=== PATIENT | male | born 1940 ===

== ENCOUNTER 2017-09-05 10:38 | Emergency (ER) | payer MEDICARE ==
[2017-09-05 11:42] LABS: BASO % 0.8 % (0.0-2.0); EOS # 0.1 K/uL (0.0-0.7); EOS % 1.6 % (0.0-4.0); HEMOGLOBIN 14.9 g/dL (12.0-18.0); LYMPH # 1.3 K/uL (1.0-4.3); MEAN CELL VOLUME 85.9 fL (80.0-94.0); MEAN CORPUSCULAR HGB CONC 34.9 g/dL (33.0-37.0); MEAN PLATELET VOLUME 8.2 fL (7.2-11.7); MONO # 0.5 K/uL (0.0-0.8); MONO % 8.2 % (0.0-10.0); NEUT # 4.3 K/uL (1.8-7.0); NEUT % 68.4 % (50.0-75.0); RBC 4.98 Mil/uL (4.40-5.90); RED CELL DISTRIBUTION WIDTH 14.3 % (11.5-14.5); WHITE BLOOD COUNT 6.4 K/uL (4.8-10.8)
--- NOTE | 2017-09-05 11:42 | C.PDOC ---
History Of Present Illness 77yo male, with history of diabetes, comes to ER for evaluation of right toe pain, redness and swelling x 5 days. Patient states his symptoms started after he cut his toenails and cut into his skin as well. Otherwise, denies any fever, chills, weakness, numbness or tingling to his foot. Patient offers no additional medical complaints. Time Seen by Provider: 09/05/17 11:08 Chief Complaint (Nursing): Lower Extremity Problem/Injury History Per: Patient History/Exam Limitations: no limitations Onset/Duration Of Symptoms: Days Current Symptoms Are (Timing): Still Present Additional History Per: Patient Past Medical History Reviewed: Historical Data, Nursing Documentation, Vital Signs Vital Signs: Last Vital Signs Temp 97.5 F L 09/05/17 10:42 Pulse 75 09/05/17 10:42 Resp 16 09/05/17 10:42 BP 133/72 09/05/17 10:42 Pulse Ox 98 09/05/17 12:51 - Medical History PMH: Diabetes Surgical History: No Surg Hx Family History: States: No Known Family Hx - Social History Hx Alcohol Use: No Hx Substance Use: No - Immunization History Hx Tetanus Toxoid Vaccination: No Hx Influenza Vaccination: No Review Of Systems Except As Marked, All Systems Reviewed And Found Negative. Constitutional: Negative for: Fever, Chills Musculoskeletal: Positive for: Foot Pain (right foot pain) Neurological: Negative for: Weakness, Numbness Physical Exam - Physical Exam Appears: Non-toxic, No Acute Distress Skin: Warm, Dry Head: Atraumatic, Normacephalic Eye(s): bilateral: Normal Inspection Neck: Supple Chest: Symmetrical Cardiovascular: Rhythm Regular Respiratory: Normal Breath Sounds Gastrointestinal/Abdominal: Normal Exam, Soft, No Tenderness Back: Normal Inspection Extremity: Normal ROM, No Pedal Edema, No Calf Tenderness, Capillary Refill (< 2 seconds), No Deformity, Swelling (swelling and erythema to dorsal aspect of right forefoot. no drainage noted.) Pulses: Left Dorsalis Pedis: Normal (normal 2+ PT pulses bilaterally), Right Dorsalis Pedis: Normal Neurological/Psych: Oriented x3, Normal Speech, Normal Cognition, Normal Motor, Normal Sensation ED Course And Treatment - Laboratory Results Result Diagrams: 09/05/17 11:39 09/05/17 11:39 O2 Sat by Pulse Oximetry: 98 (RA) Pulse Ox Interpretation: Normal - Other Rad XR Foot X-Ray: Viewed By Me, Read By Radiologist Interpretation: FINDINGS: BONES: No fracture. Very small plantar calcaneal spur noted. No lytic or blastic osseous lesion. There is a small shallow erosion along the medial distal border of the 1st proximal phalanx with a sclerotic border indicating that this is likely a slow or remote process. There is no overlying soft tissue swelling to suggest tophus. Nevertheless, the possibility of gout should be considered. No other erosions are appreciated. JOINTS: Normal. SOFT TISSUES: Normal. OTHER FINDINGS: None. IMPRESSION: Small shallow erosion along the distal medial aspect 1st proximal phalanx. Possible gout. No evidence of osteomyelitis. Medical Decision Making Medical Decision Making: Assessment: Cellulitis Plan: -- XR right foot 1130 Podiatry resident aware, will evaluate patient at bedside -- Basic labs ordered 1224 Labs reviewed, no clinically significant abnormalities. XR foot reviewed, no acute findings. 1250 Patient seen and evaluated by podiatry resident, plan to discharge patient home with 7 day course of augmentin. Patient to follow up with Dr. Perez in his office. Disposition Discussed With .: Jaciel Perez Doctor Will See Patient In The: ED Counseled Patient/Family Regarding: Studies Performed, Diagnosis, Need For Followup, Rx Given - Disposition Referrals: Jaciel Perez DPM [Staff Provider] - Disposition: HOME/ ROUTINE Disposition Time: 12:52 Condition: STABLE Additional Instructions: follow up with Dr. Perez within 2 days call to make an appointment take medication as prescribed return to ER if symptoms worsens or progress Prescriptions: Amoxicillin/Clavulanate [Augmentin 875 MG-125 MG] 1 tab PO BID #20 tab Instructions: Cellulitis (Skin Infection), Adult (DC) Forms: Gen Discharge Inst Azerbaijani, Weblio (Azerbaijani) Print Language: UPPER SORBIAN - Clinical Impression Clinical Impression: Cellulitis - Isauraibe Statement The provider has reviewed the documentation as recorded by the Harper Davis Provider Attestation: All medical record entries made by the Harper were at my direction and personally dictated by me. I have reviewed the chart and agree that the record accurately reflects my personal performance of the history, physical exam, medical decision making, and the department course for this patient. I have also personally directed, reviewed, and agree with the discharge instructions and disposition.
[2017-09-05 11:55] LABS: ALB/GLOB RATIO 1.4 (1.0-2.1); ALBUMIN 4.2 g/dL (3.5-5.0); ALT/SGPT 35 U/L (21-72); AST/SGOT 18 U/L (17-59); BLOOD UREA NITROGEN 21 mg/dL (9-20); CALCIUM 9.3 mg/dl (8.6-10.4); GFR AFRICAN-AMERICAN > 60; GFR NON-AFRICAN AMERICAN > 60
--- NOTE | 2017-09-05 12:07 | RAD ---
Date of service: 09/05/2017 PROCEDURE: Right Foot Radiographs. HISTORY: toe swelling COMPARISON: None. FINDINGS: BONES: No fracture. Very small plantar calcaneal spur noted. No lytic or blastic osseous lesion. There is a small shallow erosion along the medial distal border of the 1st proximal phalanx with a sclerotic border indicating that this is likely a slow or remote process. There is no overlying soft tissue swelling to suggest tophus. Nevertheless, the possibility of gout should be considered. No other erosions are appreciated. JOINTS: Normal. SOFT TISSUES: Normal. OTHER FINDINGS: None. IMPRESSION: Small shallow erosion along the distal medial aspect 1st proximal phalanx. Possible gout. No evidence of osteomyelitis.
--- NOTE | 2017-09-05 12:39 | CP.PCM.CON ---
History of Present Illness - History of Present Illness History of Present Illness: Podiatry Consult Note - Dr. Perez 77 year old male PMHx DM seen and evaluated in ED regarding right great toe pain with associated redness and swelling x5 days. Patient states approximately 1 week ago he accidentally cut the skin around his great toe nail while he was trimming his nails - admits the redness and swelling started the next day. Patient reports 5/10 pain in his left great toe, worsened with ambulation and while wearing shoes. Patient admits to putting Vicks Vaporub as prior treatment , and Tylenol as needed for pain. Denies N/V/F/D/C/SOB. Offers no other complaints at this time. Review of Systems - Review of Systems All systems: reviewed and no additional remarkable complaints except (as per HPI ) Past Patient History - Infectious Disease Hx of Infectious Diseases: None - Past Social History Smoking Status: Never Smoked - ENDOCRINE/METABOLIC Hx Diabetes Mellitus Type 2: Yes - PSYCHIATRIC Hx Substance Use: No - ANESTHESIA Hx Anesthesia: No Meds Home Medications: Home Medication List Medication Instructions Recorded Confirmed Type Amoxicillin/Clavulanate [Augmentin 1 tab PO BID #20 tab 09/05/17 Rx 875 MG-125 MG] Allergies/Adverse Reactions: Allergies Allergy/AdvReac Type Severity Reaction Status Date / Time No Known Allergies Allergy Verified 09/05/17 10:44 Physical Exam - Constitutional Appears: Well, Non-toxic, No Acute Distress - Extremities Exam Additional comments: RLE focused physical exam VASC: DP and PT pulses palpable 2/4. CFT <3 seconds to all digits x5. Temperature gradient warm to warm, no significant increase in warmth to areas of erythema. Nonpitting edema noted to right hallux. NEURO: Gross sensation diminished. DERM: Linear superficial laceration noted to lateral hallucal nail fold with periwound maceration present; no drainage noted; no malodor; no purulence; no fluctuance. Erythema noted to hallux extending proximally to 1st metatarsal head. ORTHO: Mild tenderness to palpation laceration. - Neurological Exam Neurological exam: Alert, Oriented x3 - Psychiatric Exam Psychiatric exam: Normal Affect, Normal Mood Results - Vital Signs Recent Vital Signs: Last Vital Signs Temp 97.5 F L 09/05/17 10:42 Pulse 75 09/05/17 10:42 Resp 16 09/05/17 10:42 BP 133/72 09/05/17 10:42 Pulse Ox 98 09/05/17 12:24 - Labs Result Diagrams: 09/05/17 11:39 09/05/17 11:39 Labs: Laboratory Results - last 24 hr 09/05/17 09/05/17 11:39 11:39 WBC 6.4 RBC 4.98 Hgb 14.9 Hct 42.7 MCV 85.9 MCH 30.0 MCHC 34.9 RDW 14.3 Plt Count 174 MPV 8.2 Neut % (Auto) 68.4 Lymph % (Auto) 21.0 Iron % (Auto) 8.2 Eos % (Auto) 1.6 Baso % (Auto) 0.8 Neut # (Auto) 4.3 Lymph # (Auto) 1.3 Iron # (Auto) 0.5 Eos # (Auto) 0.1 Baso # (Auto) 0.0 Sodium 137 Potassium 4.2 Chloride 100 Carbon Dioxide 24 Anion Gap 17 BUN 21 H Creatinine 0.8 Est GFR ( Amer) > 60 Est GFR (Non-Af Amer) > 60 Random Glucose 226 H Calcium 9.3 Total Bilirubin 0.7 AST 18 ALT 35 Alkaline Phosphatase 191 H Total Protein 7.1 Albumin 4.2 Globulin 2.9 Albumin/Globulin Ratio 1.4 Assessment & Plan - Assessment and Plan (Free Text) Assessment: 77M with right hallux cellulitis Plan: Patient seen and evaluated Discussed with attending, Dr. Perez VSS, WBC 6.4 Wound cleansed with sterile saline and dressed with Bactroban, DSD Rx Bactroban - QD applications Demonstrated QD dressing changes to patient Rx Augmentin x10 days Patient to follow up with Dr. Perez in office within 1 week of discharge Thank you for the consult
[2017-09-05] MEDS ORDERED: Amoxicillin-Clav 875-125 mg Tab PO ONE (13:22)
[2017-09-05] MEDS: Amoxicillin-Clav 875-125 mg Tab PO STA (13:30)
[2017-09-05 13:41] VITALS: BP 128/73; PULSE 62; RESP 19; TEMP 97.9; O2SAT 100
== END 2017-09-05 14:00 | disposition home or self-care (01) ==
LOC: C.ER 10:38
DX: L03.031 Cellulitis of right toe (principal); E11.9 Type 2 diabetes mellitus without complications

== ENCOUNTER 2018-04-04 08:37 | Outpatient (CLI) | payer MEDICARE | END 2018-04-04 08:38 | disposition home or self-care (01) | LOC: C.LAB 08:37 ==